=== PATIENT | male | born 1960 | race Caucasian/White ===

== ENCOUNTER 2016-11-25 20:27 | Emergency (ER) | payer BC ==
--- NOTE | 2016-11-26 02:39 | ER ---
ADMIT: 11/25/2016 RM/LOC: ER [facility] MR#: [id number] [address] [id number] [place] PENNY [address] [place] [address] Emergency Room Report SEX: M AGE: 56 : 1960 DATE: 11/25/2016 The patient is a 56-year-old male, who cut his left hand carrying chest of drawers downstairs when he stumbled on the last step. Denies any other injuries. Last tetanus unknown. Exam remarkable for nontoxic, afebrile, significantly undernourished male weighing 48.3 kilos. A 12 cm skin flap noted over the dorsum of the left hand first web space. No foreign body identified. Wound anesthetized with Xylocaine 1%; thoroughly scrubbed with Hibiclens; irrigated; closed loosely with 4-0 Prolene x7, bacitracin, and dressing. Tdap updated. Follow up with [facility] in 7 to 10 days. Hua Tijerina MD/ tanya JOB #: [id number] CC: Hua Tijerina MD, Attending Physician Steven Messer MD, Family Physician . [facility]
== END 2016-11-25 21:45 | disposition home or self-care (01) ==
LOC: ER 20:27
PROC: 0HQGXZZ Repair Left Hand Skin, External Approach (ICD-10-PCS; principal; 2016-11-25)
DX: S61.412A Laceration without foreign body of left hand, initial encounter (principal); J44.9 Chronic obstructive pulmonary disease, unspecified; F17.200 Nicotine dependence, unspecified, uncomplicated; Z23 Encounter for immunization; W10.9XXA Fall (on) (from) unspecified stairs and steps, initial encounter